=== PATIENT | female | born 1970 | race American Indian/Alaskan Native ===

== ENCOUNTER 2016-10-08 10:51 | Emergency (ER) | payer OTHER ==
[2016-10-08 11:30] LABS: Basophils % (Auto) 0.7 % (0.0-1.8); Eosinophils % (Auto) 3.1 % (0.0-4.3); Hematocrit 36.3 % (30.3-42.9); Hemoglobin 11.7 gm/dl (10.1-14.3); Mean Corpuscular HGB Conc 32 % (30-34); Mean Corpuscular Hemoglobin 30 pg (28-32); Mean Corpuscular Volume 93 fl (79-97); Platelet Count 261 K/mm3 (140-440); Red Cell Distribution Width 13.9 % (13.2-15.2); White Blood Count 8.8 K/mm3 (4.5-11.0)
[2016-10-08 11:46] LABS: Blood Urea Nitrogen 6 mg/dL (7-17); Calcium 9.3 mg/dL (8.4-10.2); Carbon Dioxide 26 mmol/L (22-30); Chloride 92.5 mmol/L (98-107); Glucose 263 mg/dL (65-100); Sodium 137 mmol/L (137-145)
[2016-10-08 12:45] LABS: Anion Gap 21 mmol/L; Potassium 3.8 mmol/L (3.6-5.0)
[2016-10-08] MEDS ORDERED: VANCOMYCIN/NS 1 GM/250 ML 1 GM/250 ML BAG IV ONE (17:39)
[2016-10-08] MEDS ORDERED: DILAUDID IV ONE (17:40)
[2016-10-08] MEDS ORDERED: PERCOCET 5/325 PO ONE ×2 (17:42→21:00)
--- NOTE | 2016-10-08 17:45 | Emergency Department Report ---
HPI - General Chief Complaint: Wound/Laceration Time Seen by Provider: 10/08/16 17:28 - HPI HPI: This is a 46-year-old Afro[place] female who presents to the emergency department from home with complaint of a 4-5 day history of swelling and pain to the left foot. It is red and there is a raised area to the dorsum of the foot. She complained of some bilateral foot swelling but says that the right foot went down with some bed rest lately. She says that she has been having some nausea, vomiting but denies any fever. The pain worsens with ambulation but she is able to walk. She has a past medical history of diabetes, leukemia on chemotherapy pills and hypertension. Her primary care doctor is a Dr. Ross and her oncologist is Dr. Willis. No recent travel or sick contacts at home. ED Past Medical Hx - Past Medical History Previous Medical History?: Yes Hx Hypertension: Yes Hx Diabetes: Yes Hx of Cancer: Yes (Lukemia AML) Additional medical history: [place] Palsy - Surgical History Past Surgical History?: Yes Hx Cholecystectomy: Yes Hx Appendectomy: Yes Additional Surgical History: hiatal hernia - Social History Smoking Status: Never Smoker Substance Use Type: None - Medications Home Medications: Home Medications Medication Instructions Recorded Confirmed Last Taken Type Doxazosin Mesylate [Cardura] 2 mg PO BID 10/08/16 10/08/16 Unknown History Insulin NPH Hum/Reg Insulin Hm 40 unit SQ BID 10/08/16 10/08/16 Unknown History [HumuLIN 70-30 Vial] Lisinopril [Zestril] 20 mg PO BID 10/08/16 10/08/16 Unknown History amLODIPine [Norvasc] 10 mg PO BID 10/08/16 10/08/16 Unknown History cloNIDine [Catapres] 0.1 mg PO BID 10/08/16 10/08/16 Unknown History ED Review of Systems ROS: Stated complaint: FOOT SWOLLEN Other details as noted in HPI Comment: All other systems reviewed and negative Constitutional: denies: chills, fever Eyes: denies: eye pain, eye discharge, vision change ENT: denies: ear pain, throat pain Respiratory: denies: cough, shortness of breath, wheezing Cardiovascular: denies: chest pain, palpitations Gastrointestinal: nausea, vomiting Genitourinary: denies: urgency, dysuria, discharge Musculoskeletal: joint swelling, arthralgia Skin: lesions, change in color Neurological: denies: headache, weakness, paresthesias Physical Exam - Physical Exam Vital Signs: Vital Signs 10/08/16 10/08/16 10:56 16:38 Temperature 98.3 F 98 F Pulse Rate 90 98 H Respiratory 16 20 Rate Blood Pressure 144/103 Blood Pressure 181/106 [Left] O2 Sat by Pulse 99 95 Oximetry Physical Exam: GENERAL: The patient is well-developed well-nourished. HEENT: Normocephalic. Atraumatic. Extraocular motions are intact. Patient has moist mucous membranes. NECK: Supple. Trachea is midline. CHEST/LUNGS: Clear to auscultation. There is no respiratory distress noted. HEART/CARDIOVASCULAR: Regular. There is no tachycardia. There is no gallop rub or murmur. ABDOMEN: Abdomen is soft, nontender. Patient has normal bowel sounds. There is no abdominal distention. SKIN: There is some nonpitting swelling of the left dorsal foot where there is also erythema, warmth and there is a 4 cm circular area of swelling and fluctuance that appears consistent with an abscess. NEURO: The patient is awake, alert, and oriented. The patient is cooperative. The patient has no focal neurologic deficits. The patient has normal speech. MUSCULOSKELETAL: There is tenderness to palpation of the left foot with the patient appears to have an abscess and cellulitis. There is no limitation range of motion. There is no evidence of acute injury. ED Course Vital Signs 10/08/16 10/08/16 10:56 16:38 Temperature 98.3 F 98 F Pulse Rate 90 98 H Respiratory 16 20 Rate Blood Pressure 144/103 Blood Pressure 181/106 [Left] O2 Sat by Pulse 99 95 Oximetry ED Medical Decision Making - Lab Data Result diagrams: 10/08/16 11:13 10/08/16 11:13 - Radiology Data Radiology results: report reviewed, image reviewed interpreted by me: X-ray of the left foot shows some soft tissue swelling but otherwise no fracture , dislocation or signs of osteomyelitis. Ultrasound of the left foot shows some 3.9 x 3.9 x 1 cm of soft tissue swelling/ mass in the subcutaneous region. There is no shadowing. - Medical Decision Making 46-year-old female presents the emergency department with a few days of redness , swelling and pain to the left foot. The patient appears to have both a cellulitis and an abscess. There is no leukocytosis. Vital signs show that she is afebrile. However the patient has some blood pressure issues reaching a systolic of almost 200. However it did come back down to a more reasonable level with a dose of hydralazine and some pain control. She was given a dose of IV vancomycin. She has diabetic and a cancer patient on chemotherapy. For these reasons my intention was for the patient to be admitted to the hospital for IV antibiotics, pain control and further evaluation by either orthopedist or a computer installation engineer. The patient was then taken under the care of the admitting hospitalist, Dr. Richardson, who decided that the patient did not require admission and instead wrote for outpatient antibiotics, pain medication. - Differential Diagnosis cellulitis, abscess, osteomyelitis Critical Care Time: No Critical care attestation.: If time is entered above; I have spent that time in minutes in the direct care of this critically ill patient, excluding procedure time. ED Disposition Clinical Impression: Cellulitis of foot, Foot abscess, left Hypertension Qualifiers: Hypertension type: essential hypertension Qualified Code(s): I10 - Essential ( primary) hypertension Disposition: OP ADMITTED IP TO THIS HOSP Is pt being admited?: Yes Condition: Stable Instructions: Cellulitis (ED), Abscess (ED), Hypertension (ED) Additional Instructions: Please follow-up with your primary care physician tomorrow without fail. Take the antibiotics as prescribed. Return to the emergency department with any worsening of your redness, abscess, development of fever or any acute distress. The medications prescribed to you by Dr. Richardson are potent narcotic medications and an be severely sedating. These medication should not be taken prior to driving, working, being responsible for children and cannot be mixed with alcohol. He will have also been given a referral for a local computer installation engineer. Referrals: GEMINI COWAN MD [Primary Care Provider] - 3-5 Days BENJY BORREGO MD [Staff Physician] - 3-5 Days Time of Disposition: 21:28
--- NOTE | 2016-10-08 18:56 | Ultrasound Report ---
FINAL REPORT EXAM: US EXTREM NONVASCULAR LTD LT HISTORY: Soft tissue left foot, pain and swelling TECHNIQUE: Ultrasound soft tissue left foot in area pain and swelling PRIORS: None. FINDINGS: The dorsal aspect of the foot in area of pain and swelling there is a mixed echogenicity mass measuring 3.9 x 3.9 x 0.9 centimeters. It does not appear hypervascular. Fontanez are slightly irregular and are appear well-defined. No acoustic shadowing seen. IMPRESSION: Soft tissue mass in area of swelling 3.9 x 3.9 by 0.9 centimeters
[2016-10-08] MEDS ORDERED: APRESOLINE IV ONE (19:13)
--- NOTE | 2016-10-08 19:58 | XRay Report ---
FINAL REPORT EXAM: XR FOOT 3 LT HISTORY: Foot pain TECHNIQUE: 3 views Left foot PRIORS: None. FINDINGS: No fracture or dislocation identified. Joint spaces are within normal limits. No erosive bony change identified. No bony lesions are identified. There is dorsal soft tissue swelling IMPRESSION: Dorsal soft tissue swelling
[2016-10-08 20:42] VITALS: BP 162/100
--- NOTE | 2016-10-08 20:47 | Event Note ---
Date: 10/08/16 p[atient seen for L foot swelling and redness- 3 days duration. Painful. Pmh of AML T2DM and Htn. Primary care Dr Ross Dx Left foot abscess.-Can be managed with po Abx -Clindamycin f/u with primary care May need I and D of abscess as outpatient Htn 150/100.To f/u with Primary care for adjustment of medication.Part of it pain induced.
[2016-10-08] MEDS ORDERED: DILAUDID IV PRN (21:21)
== END 2016-10-08 21:30 | disposition admitted as inpatient to this hospital (09) ==
LOC: ED 10:51
DX: L03.116 Cellulitis of left lower limb (principal); L02.612 Cutaneous abscess of left foot; I10 Essential (primary) hypertension; E11.9 Type 2 diabetes mellitus without complications
CPT/HCPCS: 36415; 73630; 76882; 80048; 82805; 82962; 85025; 87040; 96365; 96366; 96375; 99285; J0360; J1170; J3370

== ENCOUNTER 2017-02-07 19:12 | Emergency (ER) | payer OTHER ==
[2017-02-07 19:27] VITALS: BP 143/91
[2017-02-07 20:09] LABS: Basophils % (Auto) 0.8 % (0.0-1.8); Eosinophils % (Auto) 0.9 % (0.0-4.3); Hemoglobin 12.2 gm/dl (10.1-14.3); Mean Corpuscular HGB Conc 31 % (30-34); Mean Corpuscular Hemoglobin 29 pg (28-32); Mean Corpuscular Volume 93 fl (79-97); Platelet Count 353 K/mm3 (140-440); Red Blood Count 4.19 M/mm3 (3.65-5.03); Red Cell Distribution Width 14.5 % (13.2-15.2); White Blood Count 13.1 K/mm3 (4.5-11.0)
--- NOTE | 2017-02-07 20:18 | Cat Scan Report ---
FINAL REPORT PROCEDURE: CT HEAD/BRAIN WO CON TECHNIQUE: Computerized tomography of the head was performed without contrast material. HISTORY: neuro deficits \T\lt; 6hrs or sx present upon awakening COMPARISON: No prior studies are available for comparison. FINDINGS: Skull and scalp: Normal. Paranasal sinuses: Normal. Ventricles and subarachnoid spaces: Normal. Cerebrum: An irregular area of hypodensity without mass effect is noted involving the bermudez and white matters of left frontal lobe measuring 2 centimeters x 1.2 centimeters without any mass effect consistent with encephalomalacia. A similar lesion is noted involving the right occipital lobe. Mild degree bilateral periventricular nonspecific white matter hypodensity is noted. An acute intracranial hemorrhage is not identified. Left frontal lobe. Cerebellum and brainstem: Small wedge-shaped hypodense lesions are noted involving the posterior portions of bilateral cerebellar hemispheres without mass effect.. Vasculature: Atherosclerotic calcification is noted involving bilateral internal carotid and left vertebral artery.. Comments: None. 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 Nonspecific bilateral cerebral white matter hypodensity most likely represents chronic microangiopathy. No acute intracranial hemorrhage. If an acute superimposed the infarct is suspected MRI with diffusion-weighted imaging is recommended.
[2017-02-07 20:21] LABS: INR 1.01 (0.87-1.13); Partial Thromboplastin Time 29.1 Sec. (24.2-36.6)
[2017-02-07 20:40] LABS: BUN/Creatinine Ratio 8; Blood Urea Nitrogen 5 mg/dL (7-17); Calcium 8.6 mg/dL (8.4-10.2); Carbon Dioxide 24 mmol/L (22-30); Glucose 410 mg/dL (65-100)
[2017-02-07 20:41] LABS: Anion Gap 23 mmol/L; Chloride 91.1 mmol/L (98-107); Potassium 3.3 mmol/L (3.6-5.0); Sodium 135 mmol/L (137-145)
== END 2017-02-07 23:55 | disposition left against medical advice (07) ==
LOC: ED 19:12
DX: Z53.21 Procedure and treatment not carried out due to patient leaving prior to being seen by health care provider (principal)
CPT/HCPCS: 36415; 70450; 80048; 84484; 85025; 85610; 85670; 85730; 93005; 93010